=== PATIENT | female | born 1995 | race African-American/Black ===

== ENCOUNTER 2017-11-29 18:31 | Emergency (ER) | payer OTHER, SELFPAY ==
[2017-11-29] MEDS ORDERED: Ibuprofen 200 MG TAB ONE (19:29)
[2017-11-29] MEDS ORDERED: HYDROcodone/Acetaminophen 5/325 mg Tablet ONE (19:29)
--- NOTE | 2017-11-29 20:32 | RAD ---
CHEST TWO VIEWS: 11/29/17 The heart is normal in size. The mediastinum shows no widening or shift. The lungs are fully inflated and clear. There are no pleural effusions or pneumothoraces. A nondisplaced fracture of the left 9th rib is noted laterally. No other bony injuries were seen. IMPRESSION: Fracture of the left 9th rib. POS: HOME
== END 2017-11-29 19:35 | disposition home or self-care (01) ==
LOC: BURERS 18:31
DX: S22.32XA Fracture of one rib, left side, initial encounter for closed fracture (principal); V89.2XXA Person injured in unspecified motor-vehicle accident, traffic, initial encounter
CPT/HCPCS: 71046